=== PATIENT | female | born 1980 | race Two or more races ===

== ENCOUNTER 2023-10-02 10:39 | Emergency (ER) | payer SELFPAY ==
[~2023-10-02] VITALS: Ht 157.5 cm; Wt 70.0 kg
[2023-10-02 10:43] VITALS: BP 120/68; PULSE 97; RESP 16; TEMP 97.8; O2SAT 100
== END 2023-10-02 12:15 | disposition home or self-care (01) ==
LOC: ER 10:39
DX: O26.892 Other specified pregnancy related conditions, second trimester (principal); S16.1XXA Strain of muscle, fascia and tendon at neck level, initial encounter; S00.83XA Contusion of other part of head, initial encounter; Z3A.15 15 weeks gestation of pregnancy; V49.49XA Driver injured in collision with other motor vehicles in traffic accident, initial encounter; Y93.89 Activity, other specified; Y92.89 Other specified places as the place of occurrence of the external cause; Y99.8 Other external cause status
CPT/HCPCS: 81025; 99283